=== PATIENT | female | born 1995 | race Caucasian/White ===

== ENCOUNTER 2019-09-27 16:17 | Emergency (ER) | payer OTHER, MEDICAID ==
[~2019-09-27] VITALS: Ht 160 cm; Wt 72.0 kg
[2019-09-27 17:01] LABS: BASO % 1 % (0-3); EOS # 0.1 x10^3/uL (0.0-0.7); EOS % 1 % (0-3); HEMATOCRIT 39.4 % (36.0-47.0); HEMOGLOBIN 13.2 g/dL (12.0-15.5); LYMPH # 3.3 x10^3/uL (1.0-4.8); LYMPH % 47 % (24-48); MEAN CORPUSCULAR HEMOGLOBIN 30 pg (25-35); MEAN CORPUSCULAR HGB CONC 34 g/dL (31-37); MEAN CORPUSCULAR VOLUME 89 fL (79-100); MONO # 0.6 x10^3/uL (0.0-1.1); MONO % 9 % (0-9); NEUT % 43 % (31-73); PLATELET COUNT 475 x10^3/uL (140-400); RED BLOOD COUNT 4.42 x10^6/uL (3.50-5.40); RED CELL DISTRIBUTION WIDTH 15.9 % (11.5-14.5)
[2019-09-27 17:12] LABS: CALCIUM 9.3 mg/dL (8.5-10.1); CREATININE 0.6 mg/dL (0.6-1.0); GFR 120.8; POTASSIUM 3.6 mmol/L (3.5-5.1)
[2019-09-27] MEDS ORDERED: ONDANSETRON PF 4 MG/2 ML VIAL. IV ONE ×2 (17:15→19:15)
[2019-09-27] MEDS ORDERED: MORPHINE SULFATE 4 MG/ML VIAL. IV ONE ×2 (17:15→19:15)
[2019-09-27] MEDS ORDERED: IV NORMAL SALINE 1000ML BAG 1,000 ML IV ONE (17:15)
[2019-09-27 17:26] LABS: ALBUMIN 4.1 g/dL (3.4-5.0); ALBUMIN/GLOBULIN RATIO 0.9 (1.0-1.7); TOTAL BILIRUBIN 0.4 mg/dL (0.2-1.0); TOTAL PROTEIN 8.8 g/dL (6.4-8.2)
[2019-09-27] MEDS ORDERED: IOHEXOL 300 MG/ML 100ML VIAL. IV ONE (17:45)
[2019-09-27 17:56] LABS: BILIRUBIN,URINE SMALL (NEG); CLARITY,URINE CLOUDY; COLOR,URINE YELLOW; NITRITE,URINE POSITIVE (NEG); PH,URINE 6.5 (<5.0-8.0); PROTEIN,URINE NEGATIVE (NEG-TRACE)
[2019-09-27] MEDS ORDERED: CONTRAST GIVEN. MC PRN (18:00)
[2019-09-27 18:15] LABS: BACTERIA,URINE MANY /HPF (0-FEW); SQUAMOUS EPITHELIAL CELL,UR MOD /LPF
[2019-09-27 18:20] LABS: RBC,URINE OCC /HPF (0-2)
[2019-09-27] MEDS ORDERED: cefTRIAXone IV Push 1 GM VIAL. IVP ONE (19:15)
[2019-09-27 19:35] LABS: U PREG PATIENT NEGATIVE (NEG)
--- NOTE | 2019-09-27 19:49 | RAD ---
Exam: CT of abdomen and pelvis with contrast INDICATION: Right flank pain TECHNIQUE: Sequential axial images through the abdomen and pelvis obtained following the administration of 75 mL of Omni 300 IV contrast. Sagittal and coronal reformatted images were reconstructed from the axial data and reviewed. Comparisons: None FINDINGS: Heart size is normal. No pericardial effusion. Strandy opacities at dependent portion lungs likely representing atelectasis. Liver, spleen, pancreas and adrenals are unremarkable. Gallbladder is mildly distended without adjacent inflammatory changes. Kidneys demonstrate symmetric enhancement. No perinephric inflammation or hydronephrosis. No renal or ureteral calculi are identified. Bladder is partially distended with apparent diffuse wall thickening. Uterus is not enlarged. Cystic change at the adnexa bilaterally. Large and small bowel are unremarkable. Appendix is normal. No free intra-abdominal air or fluid. No obstruction. Abdominal aorta has a normal course and caliber. Abdominal vasculature is patent. No enlarged intra-abdominal lymph nodes are identified. No suspicious osseous lesions or acute fractures. IMPRESSION: 1. No renal or ureteral calculi. No evidence for obstructive uropathy. 2. Mildly distended gallbladder without other inflammatory changes identified. Correlate with symptomatology to determine the need for further evaluation with ultrasound. 3. Apparent diffuse wall thickening of the bladder which may be related to underdistention. Consider correlation with urinalysis for cystitis. 4. Cystic change at the adnexa bilaterally, likely follicular change in the ovaries however incompletely characterized on CT. Exposure: One or more of the following in the visualized dose reduction techniques were utilized for this examination: 1. Automated exposure control 2. Adjustment of the MA and/or KV according to patient size 3. Use of iterative of reconstructive technique Electronically signed by: Tay Hamilton MD (09/27/2019 7:46 PM) [id number]
[2019-09-27] MEDS ORDERED: CIPR500T94 PO (20:21)
[2019-09-27] MEDS ORDERED: FLUC150T PO (20:21)
--- NOTE | 2019-09-27 20:21 | PHYS DOC ---
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 (DARRICK PLASENCIA MD) General Adult EDM: Chief Complaint: FLANK PAIN HPI: HPI: Patient is a 24 year old paraplegic female who presents to the emergency department via EMS with complaints of bilateral flank and suprapubic pain that began yesterday. Patient states she has had symptoms of urinary tract infection for a few weeks but noticed increased pain, nausea, and foul-smelling urine today. Patient denies any vomiting, fever, shortness of breath, cough, diarrhea, or decreased urine output. She currently rates her pain a 10 out of 10 on pain scale, she denies any alleviating or exacerbating factors. Patient states that she self catheterizes in order to urinate and that this morning she noticed a blood clot in her urine. Patient brought that blood clot with her to the emergency room. (BIJU MONGE APRN) Review of Systems: Review of Systems: Complete ROS is negative unless otherwise noted in HPI. (BIJU MONGE APRN) Heart Score: Risk Factors: Risk Factors: DM, Current or recent (<one month) smoker, HTN, HLP, family hist ory of CAD, obesity. Risk Scores: Score 0 - 3: 2.5% MACE over next 6 weeks - Discharge Home Score 4 - 6: 20.3% MACE over next 6 weeks - Admit for Clinical Observation Score 7 - 10: 72.7% MACE over next 6 weeks - Early Invasive Strategies (BIJU MONGE APRN) Current Medications: Current Medications Medications (Trade) Dose Ordered Sig/Emma Start Time Stop Time Status Last Admin Dose Admin Ceftriaxone Sodium (Rocephin) 1 gm 1X ONCE 09/27/19 19:15 09/27/19 19:16 DC 09/27/19 19:53 1 GM Info (CONTRAST GIVEN -- Rx MONITORING) 1 each PRN DAILY PRN 09/27/19 18:00 09/29/19 17:59 Iohexol (Omnipaque 300 Mg/ml) 75 ml 1X ONCE 09/27/19 17:45 09/27/19 17:46 DC 09/27/19 19:28 75 ML Morphine Sulfate (Morphine Sulfate) 4 mg 1X ONCE 09/27/19 19:15 09/27/19 19:16 DC 09/27/19 19:43 4 MG Ondansetron HCl (Zofran) 4 mg 1X ONCE 09/27/19 19:15 09/27/19 19:16 DC 09/27/19 19:40 4 MG Sodium Chloride 1,000 ml @ 1,000 mls/hr 1X ONCE 09/27/19 17:15 09/27/19 18:14 DC 09/27/19 17:26 1,000 MLS/HR (BIJU MONGE APRN) Allergies: Allergies: Allergies Coded Allergies Type Severity Reaction Last Updated Verified buprenorphine Allergy Severe nausea, vomiting, headache, "throat closes" 09/27/19 Yes naloxone Allergy Severe nausea, vomiting, headache, "throat closes" 09/27/19 Yes sulfamethoxazole Allergy Intermediate mouth sores 09/27/19 Yes trimethoprim Allergy Intermediate mouth sores 09/27/19 Yes hydrocodone Adverse Reaction Intermediate nausea and vomiting 09/27/19 Yes hydromorphone Adverse Reaction Intermediate nausea, vomiting, and headache 09/27/19 Yes tramadol Adverse Reaction Intermediate nausea, vomiting, and headache 09/27/19 Yes (BIJU MONGE APRN) Physical Exam: PE: Constitutional: Well developed, well nourished, no acute distress, non-toxic appearance. [] HENT: Normocephalic, atraumatic, bilateral external ears normal, nose normal. [] Eyes: PERRLA, EOMI, conjunctiva normal, no discharge. [] Neck: Normal range of motion, no stridor. [] Cardiovascular:Heart rate regular rhythm Lungs & Thorax: Bilateral breath sounds clear to auscultation, Respirations even and unlabored, no retractions, no respiratory distress [] Abdomen: Soft, suprapubic TTP, no rebound tenderness, no masses, no pulsatile masses. [] Skin: Warm, dry, no erythema, no rash. [] Back: Bilateral CVA tenderness. [] Extremities: No cyanosis, no edema. [] Neurologic: Alert and oriented X 3, no focal deficits noted. [] Psychologic: Affect normal, judgement normal, mood normal. [] (BIJU MONGE APRN) Current Patient Data: Labs: Laboratory Tests Test 09/27/19 16:30 09/27/19 17:40 White Blood Count 7.0 x10^3/uL (4.0-11.0) Red Blood Count 4.42 x10^6/uL (3.50-5.40) Hemoglobin 13.2 g/dL (12.0-15.5) Hematocrit 39.4 % (36.0-47.0) Mean Corpuscular Volume 89 fL (79-100) Mean Corpuscular Hemoglobin 30 pg (25-35) Mean Corpuscular Hemoglobin Concent 34 g/dL (31-37) Red Cell Distribution Width 15.9 % (11.5-14.5) H Platelet Count 475 x10^3/uL (140-400) H Neutrophils (%) (Auto) 43 % (31-73) Lymphocytes (%) (Auto) 47 % (24-48) Monocytes (%) (Auto) 9 % (0-9) Eosinophils (%) (Auto) 1 % (0-3) Basophils (%) (Auto) 1 % (0-3) Neutrophils # (Auto) 3.0 x10^3/uL (1.8-7.7) Lymphocytes # (Auto) 3.3 x10^3/uL (1.0-4.8) Monocytes # (Auto) 0.6 x10^3/uL (0.0-1.1) Eosinophils # (Auto) 0.1 x10^3/uL (0.0-0.7) Basophils # (Auto) 0.0 x10^3/uL (0.0-0.2) Sodium Level 139 mmol/L (136-145) Potassium Level 3.6 mmol/L (3.5-5.1) Chloride Level 101 mmol/L (98-107) Carbon Dioxide Level 25 mmol/L (21-32) Anion Gap 13 (6-14) Blood Urea Nitrogen 11 mg/dL (7-20) Creatinine 0.6 mg/dL (0.6-1.0) Estimated GFR (Cockcroft-Gault) 120.8 BUN/Creatinine Ratio 18 (6-20) Glucose Level 77 mg/dL (70-99) Calcium Level 9.3 mg/dL (8.5-10.1) Total Bilirubin 0.4 mg/dL (0.2-1.0) Aspartate Amino Transferase (AST) 31 U/L (15-37) Alanine Aminotransferase (ALT) 29 U/L (14-59) Alkaline Phosphatase 89 U/L (46-116) Total Protein 8.8 g/dL (6.4-8.2) H Albumin 4.1 g/dL (3.4-5.0) Albumin/Globulin Ratio 0.9 (1.0-1.7) L Urine Collection Type U cath Urine Color Yellow Urine Clarity Cloudy Urine pH 6.5 (<5.0-8.0) Urine Specific [place] >=1.030 (1.000-1.030) Urine Protein Negative mg/dL (NEG-TRACE) Urine Glucose (UA) Negative mg/dL (NEG) Urine Ketones (Stick) 40 mg/dL (NEG) Urine Blood Negative (NEG) Urine Nitrite Positive (NEG) Urine Bilirubin Small (NEG) Urine Urobilinogen Dipstick 1.0 mg/dL (0.2 mg/dL) Urine Leukocyte Esterase Small (NEG) Urine RBC Occ /HPF (0-2) Urine WBC 11-20 /HPF (0-4) Urine Squamous Epithelial Cells Mod /LPF Urine Bacteria Many /HPF (0-FEW) Urine Mucus Marked /LPF Urine Test Negative (NEG) Laboratory Tests 09/27/19 16:30 Laboratory Tests 09/27/19 16:30 Vital Signs: Vital Signs Date Time Temp Pulse Resp B/P (MAP) Pulse Ox O2 Delivery O2 Flow Rate FiO2 09/27/19 19:43 20 100 Room Air 09/27/19 16:17 98.0 91 158/99 (118) 98.0 (BIJU MONGE APRN) EKG: EKG: [] (BIJU MONGE APRN) Radiology/Procedures: Radiology/Procedures: PROCEDURE: CT ABD PELV W/ IV CONTRST ONLY Exam: CT of abdomen and pelvis with contrast INDICATION: Right flank pain TECHNIQUE: Sequential axial images through the abdomen and pelvis obtained following the administration of 75 mL of Omni 300 IV contrast. Sagittal and coronal reformatted images were reconstructed from the axial data and reviewed. Comparisons: None FINDINGS: Heart size is normal. No pericardial effusion. Strandy opacities at dependent portion lungs likely representing atelectasis. Liver, spleen, pancreas and adrenals are unremarkable. Gallbladder is mildly distended without adjacent inflammatory changes. Kidneys demonstrate symmetric enhancement. No perinephric inflammation or hydronephrosis. No renal or ureteral calculi are identified. Bladder is partially distended with apparent diffuse wall thickening. Uterus is not enlarged. Cystic change at the adnexa bilaterally. Large and small bowel are unremarkable. Appendix is normal. No free intra-abdominal air or fluid. No obstruction. Abdominal aorta has a normal course and caliber. Abdominal vasculature is patent. No enlarged intra-abdominal lymph nodes are identified. No suspicious osseous lesions or acute fractures. IMPRESSION: 1. No renal or ureteral calculi. No evidence for obstructive uropathy. 2. Mildly distended gallbladder without other inflammatory changes identified. Correlate with symptomatology to determine the need for further evaluation with ultrasound. 3. Apparent diffuse wall thickening of the bladder which may be related to underdistention. Consider correlation with urinalysis for cystitis. 4. Cystic change at the adnexa bilaterally, likely follicular change in the ovaries however incompletely characterized on CT.[] (BIJU MONGE APRN) Course & Med Decision Making: Course & Med Decision Making Pertinent Labs and Imaging studies reviewed. (See chart for details) Patient is a 24-year-old female who presented to the emergency room with complaints of foul-smelling urine, with bilateral flank and suprapubic pain that began yesterday. Patient reports a history of self-catheterization, she is paraplegic. CBC is unremarkable, CMP is also unremarkable; UA is nitrite positive with 11-20 white blood cells, many bacteria, and occasional red blood cells. Patient was given 4 mg of Zofran, 4 mg of morphine, and a liter of normal saline in the emergency department. On receiving her urine results she was given a gram of Rocephin IV. Patient was given a second dose of morphine and Zofran prior to discharge. Initially prescribed patient ciprofloxacin for treatment of her urinary tract infection, patient states she is resistant to ciprofloxacin but responds well to Levaquin. Prescription was written for Levaquin and a as needed order for fluconazole per patient request. Patient was encouraged to follow-up with her primary care doctor this week, return to the ER if symptoms worsen. Patient verbalized an understanding of home care, medications, follow-up, and return to ED instructions and was in agreement with the plan of care. [] (BIJU MONGE APRN) Jenna Disclaimer: Dragon Disclaimer: This electronic medical record was generated, in whole or in part, using a voice recognition dictation system. (BIJU MONGE APRN) Departure Departure Impression: Primary Impression: Urinary tract infection Qualified Codes: N30.01 - Acute cystitis with hematuria Disposition: HOME, SELF-CARE Condition: STABLE Referrals: LUZ MARIA HAYES MD (PCP) Patient Instructions: Urinary Tract Infection, [id number] Additional Instructions: Fill prescription(s) and use as directed. Avoid bladder irritants such as caffeine, carbonation, and spicy foods. Increase clear fluids. Follow up with your primary care doctor if symptoms persist, return to the ER if symptoms worsen. Scripts Levofloxacin (LEVAQUIN) 750 Mg Tablet 1 TAB PO DAILY for 3 Days, #3 TAB 0 Refills Prov: BIJU MONGE APRN 09/27/19 Fluconazole (DIFLUCAN) 150 Mg Tablet 1 TAB PO ONCE, #1 TAB 1 Refill may repeat in 72 hours if symptoms persist Prov: BIJU MONGE APRN 09/27/19 BIJU MONGE APRN Sep 27, 2019 20:21 DARRICK PLASENCIA MD Sep 27, 2019 22:44
[2019-09-27] MEDS ORDERED: LEVO750T31 PO (20:54)
[2019-09-27 21:10] VITALS: BP 129/78
== END 2019-09-27 21:14 | disposition home or self-care (01) ==
LOC: ER 16:17
DX: N30.01 Acute cystitis with hematuria (principal); Z88.1 Allergy status to other antibiotic agents; Z88.2 Allergy status to sulfonamides; Z88.5 Allergy status to narcotic agent; Z88.6 Allergy status to analgesic agent
CPT/HCPCS: 36415; 74177; 80053; 81001; 81025; 85025; 87086; 96374; 96375; 96376; 99285; J0696; J2270; J2405; J7030; Q9967

== ENCOUNTER 2019-12-04 22:54 | Inpatient (IN) | payer OTHER, MEDICAID ==
[~2019-12-04] VITALS: Ht 160 cm; Wt 65.3 kg
[~2019-12-04 22:54] MED LIST: BACL20TA PO; CIPR500T94 PO; CYCL10TA2 PO; DICL75TA PO; DULO60CA6 PO; FLUC150T PO; GABA800T5 PO; LEVO750T31 PO; PRAZ1CAP2 PO; TIZA4TAB2 PO
[2019-12-04 23:34] LABS: BILIRUBIN,URINE SMALL (NEG); CLARITY,URINE CLOUDY; COLOR,URINE YELLOW; NITRITE,URINE POSITIVE (NEG); PROTEIN,URINE 100 mg/dL (NEG-TRACE)
[2019-12-04 23:39] LABS: BACTERIA,URINE MANY /HPF (0-FEW); WBC,URINE TNTC /HPF (0-4)
[2019-12-05 00:47] LABS: BASO # 0.1 x10^3/uL (0.0-0.2); BASO % 1 % (0-3); EOS # 0.3 x10^3/uL (0.0-0.7); EOS % 1 % (0-3); HEMATOCRIT 28.4 % (36.0-47.0); HEMOGLOBIN 9.3 g/dL (12.0-15.5); LYMPH # 3.1 x10^3/uL (1.0-4.8); LYMPH % 16 % (24-48); MEAN CORPUSCULAR HEMOGLOBIN 27 pg (25-35); MEAN CORPUSCULAR HGB CONC 33 g/dL (31-37); MEAN CORPUSCULAR VOLUME 84 fL (79-100); MONO # 2.1 x10^3/uL (0.0-1.1); MONO % 11 % (0-9); NEUT # 13.5 x10^3/uL (1.8-7.7); NEUT % 71 % (31-73); PLATELET COUNT 589 x10^3/uL (140-400); RED BLOOD COUNT 3.39 x10^6/uL (3.50-5.40); WHITE BLOOD COUNT 19.1 x10^3/uL (4.0-11.0)
[2019-12-05] MEDS ORDERED: cefTRIAXone IV Push 1 GM VIAL. IVP ONE (01:00)
[2019-12-05] MEDS ORDERED: FAMOTIDINE 20 MG/2 ML VIAL IVP ONE (01:00)
[2019-12-05] MEDS ORDERED: PHENAZOPYRIDINE 200 MG TABLET. PO ONE (01:00)
[2019-12-05] MEDS ORDERED: IV NORMAL SALINE 1000ML BAG 1,000 ML IV ONE (01:00)
[2019-12-05] MEDS ORDERED: KETOROLAC 15 MG/ML VIAL. IVP ONE (01:00)
[2019-12-05 01:03] LABS: ALBUMIN 2.6 g/dL (3.4-5.0); ALBUMIN/GLOBULIN RATIO 0.6 (1.0-1.7); CALCIUM 8.2 mg/dL (8.5-10.1); CREATININE 0.7 mg/dL (0.6-1.0); GFR 101.1; MAGNESIUM 2.1 mg/dL (1.8-2.4); TOTAL BILIRUBIN 0.1 mg/dL (0.2-1.0); TOTAL PROTEIN 6.7 g/dL (6.4-8.2)
[2019-12-05 01:14] LABS: POTASSIUM 2.7 mmol/L (3.5-5.1)
[2019-12-05 01:56] LABS: % BANDS 3 % (0-9); % EOS 1 % (0-5); % LYMPHS 19 % (24-48); % MONOS 6 % (0-10); % SEGS 71 % (35-66)
--- NOTE | 2019-12-05 01:56 | RAD ---
EXAM: CT ABDOMEN/PELVIS WITHOUT CONTRAST. HISTORY: Right flank pain. TECHNIQUE: Computed tomography of the abdomen and pelvis was performed without intravenous contrast. One or more of the following individualized dose reduction techniques were utilized for this examination: 1. Automated exposure control. 2. Adjustment of the mA and/or kV according to patient size. 3. Use of iterative reconstruction technique. COMPARISON: 09/27/2019. FINDINGS: Lung windows through the visualized portions of the bases reveal mild airspace infiltrates in the left base. Bone windows reveal no suspicious lesions. Instrumented posterior fusion changes at T9 are partially visualized. There is a mild chronic superior plate compression deformity at L1. There are no renal or ureteral calculi. The kidneys are unremarkable without contrast. There is no hydronephrosis. The bladder is partially decompressed but there is moderate diffuse wall thickening. Note is made of a retroaortic left renal vein. The liver, gallbladder, pancreas, adrenal glands, and spleen are unremarkable. There are no pathologically enlarged lymph nodes. An intrauterine device is in place. The colon is decompressed but there is suggestion of mild wall thickening. The appendix is not inflamed. There is no small bowel obstruction. IMPRESSION: 1. No renal or ureteral calculi. 2. Moderate bladder wall thickening. Correlate with urinalysis. 3. Mild colonic wall thickening may reflect only luminal decompression. Correlate clinically for mild colitis. Electronically signed by: Siva Bright MD (12/05/2019 1:53 AM) [facility]
[2019-12-05 01:57] LABS: ANISOCYTOSIS SLIGHT; PLT ESTIMATE INCREASED (ADEQUATE)
--- NOTE | 2019-12-05 02:07 | PHYS DOC ---
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 Denies associated nausea. Denies trauma. Denies fever or chills. Patient with past medical history of paraplegia. Denies history of kidney stone. Denies . Review of Systems: Review of Systems: Constitutional: Denies fever or chills; reports malaise Eyes: Denies redness or eye pain HENT: Denies nasal congestion or sore throat Respiratory: Denies cough or shortness of breath Cardiovascular: Denies chest pain or palpitations GI: Denies abdominal pain, nausea, or vomiting : Reports dysuria and hematuria Musculoskeletal: Reports right flank pain; denies neck pain Integument: Denies rash or skin lesions Neurologic: Denies headache, focal weakness or sensory changes Complete systems were reviewed and found to be within normal limits, except as documented in this note. Current Medications: Current Medications Medications (Trade) Dose Ordered Sig/Emma Start Time Stop Time Status Last Admin Dose Admin Ceftriaxone Sodium (Rocephin) 1 gm 1X ONCE 12/05/19 01:00 12/05/19 01:01 DC 12/05/19 01:05 1 GM Famotidine (Pepcid Vial) 20 mg 1X ONCE 12/05/19 01:00 12/05/19 01:04 DC Ketorolac Tromethamine (Toradol 15mg Vial) 15 mg 1X ONCE 12/05/19 01:00 12/05/19 01:01 DC 12/05/19 01:04 15 MG Phenazopyridine HCl (Pyridium) 200 mg 1X ONCE 12/05/19 01:00 12/05/19 01:01 DC 12/05/19 01:05 200 MG Potassium Chloride (Klor-Con) 40 meq 1X ONCE 12/05/19 02:00 12/05/19 02:01 UNV Sodium Chloride 1,000 ml @ 1,000 mls/hr 1X ONCE 12/05/19 01:00 12/05/19 01:59 DC 12/05/19 01:00 1,000 MLS/HR Allergies: Allergies: Allergies Coded Allergies Type Severity Reaction Last Updated Verified buprenorphine Allergy Severe nausea, vomiting, headache, "throat closes" 10/15/19 Yes naloxone Allergy Severe nausea, vomiting, headache, "throat closes" 10/15/19 Yes sulfamethoxazole Allergy Intermediate mouth sores 10/15/19 Yes trimethoprim Allergy Intermediate mouth sores 10/15/19 Yes hydrocodone Adverse Reaction Intermediate nausea and vomiting 10/15/19 Yes hydromorphone Adverse Reaction Intermediate nausea, vomiting, and headache 10/15/19 Yes tramadol Adverse Reaction Intermediate nausea, vomiting, and headache 10/15/19 Yes vancomycin Adverse Reaction Intermediate TACHYCARDIA/FEVER/ANXIETY 10/15/19 Yes Physical Exam: PE: Constitutional: Well developed, well nourished, no acute distress, non-toxic appearance HENT: Normocephalic, atraumatic Eyes: Conjunctiva normal, no discharge Neck: Normal range of motion, supple Lungs & Thorax: No respiratory distress, equal chest rise and fall Abdomen: Soft, suprapubic tenderness Skin: Warm, dry, no erythema, no rash Back: No tenderness, right CVA tenderness Extremities: No tenderness, ROM intact, no edema Neurologic: Alert and oriented X 3, paraplegia to BLE Psychologic: Affect normal, judgment normal Current Patient Data: Labs: Laboratory Tests Test 12/04/19 23:25 12/04/19 23:31 12/05/19 00:36 Urine Collection Type Unknown Urine Color Yellow Urine Clarity Cloudy Urine pH 6.0 (<5.0-8.0) Urine Specific [place] 1.020 (1.000-1.030) Urine Protein 100 mg/dL (NEG-TRACE) Urine Glucose (UA) Negative mg/dL (NEG) Urine Ketones (Stick) Negative mg/dL (NEG) Urine Blood Moderate (NEG) Urine Nitrite Positive (NEG) Urine Bilirubin Small (NEG) Urine Urobilinogen Dipstick 1.0 mg/dL (0.2 mg/dL) Urine Leukocyte Esterase Large (NEG) Urine RBC /HPF (0-2) Urine WBC Tntc /HPF (0-4) Urine Bacteria Many /HPF (0-FEW) POC Urine HCG, Qualitative Hcg negative (Negative) White Blood Count 19.1 x10^3/uL (4.0-11.0) H Red Blood Count 3.39 x10^6/uL (3.50-5.40) L Hemoglobin 9.3 g/dL (12.0-15.5) L Hematocrit 28.4 % (36.0-47.0) L Mean Corpuscular Volume 84 fL (79-100) Mean Corpuscular Hemoglobin 27 pg (25-35) Mean Corpuscular Hemoglobin Concent 33 g/dL (31-37) Red Cell Distribution Width 18.0 % (11.5-14.5) H Platelet Count 589 x10^3/uL (140-400) H Neutrophils (%) (Auto) 71 % (31-73) Lymphocytes (%) (Auto) 16 % (24-48) L Monocytes (%) (Auto) 11 % (0-9) H Eosinophils (%) (Auto) 1 % (0-3) Basophils (%) (Auto) 1 % (0-3) Neutrophils # (Auto) 13.5 x10^3/uL (1.8-7.7) H Lymphocytes # (Auto) 3.1 x10^3/uL (1.0-4.8) Monocytes # (Auto) 2.1 x10^3/uL (0.0-1.1) H Eosinophils # (Auto) 0.3 x10^3/uL (0.0-0.7) Basophils # (Auto) 0.1 x10^3/uL (0.0-0.2) Segmented Neutrophils % 71 % (35-66) H Band Neutrophils % 3 % (0-9) Lymphocytes % 19 % (24-48) L Monocytes % 6 % (0-10) Eosinophils % 1 % (0-5) Platelet Estimate Increased (ADEQUATE) Anisocytosis Slight Sodium Level 141 mmol/L (136-145) Potassium Level 2.7 mmol/L (3.5-5.1) *L Chloride Level 101 mmol/L (98-107) Carbon Dioxide Level 34 mmol/L (21-32) H Anion Gap 6 (6-14) Blood Urea Nitrogen 13 mg/dL (7-20) Creatinine 0.7 mg/dL (0.6-1.0) Estimated GFR (Cockcroft-Gault) 101.1 BUN/Creatinine Ratio 19 (6-20) Glucose Level 135 mg/dL (70-99) H Lactic Acid Level 1.2 mmol/L (0.4-2.0) Calcium Level 8.2 mg/dL (8.5-10.1) L Magnesium Level 2.1 mg/dL (1.8-2.4) Total Bilirubin 0.1 mg/dL (0.2-1.0) L Aspartate Amino Transferase (AST) 56 U/L (15-37) H Alanine Aminotransferase (ALT) 146 U/L (14-59) H Alkaline Phosphatase 108 U/L (46-116) Total Protein 6.7 g/dL (6.4-8.2) Albumin 2.6 g/dL (3.4-5.0) L Albumin/Globulin Ratio 0.6 (1.0-1.7) L Lipase 74 U/L (73-393) Laboratory Tests 12/05/19 00:36 Laboratory Tests 12/05/19 00:36 Vital Signs: Vital Signs Date Time Temp Pulse Resp B/P (MAP) Pulse Ox O2 Delivery O2 Flow Rate FiO2 12/04/19 22:59 98.4 139 18 117/68 (84) 97 Room Air 98.4 EKG: EKG: [] Radiology/Procedures: Radiology/Procedures: PROCEDURE: CT ABDOMEN PELVIS WO CONTRAST EXAM: CT ABDOMEN/PELVIS WITHOUT CONTRAST. HISTORY: Right flank pain. TECHNIQUE: Computed tomography of the abdomen and pelvis was performed without intravenous contrast. One or more of the following individualized dose reduction techniques were utilized for this examination: 1. Automated exposure control. 2. Adjustment of the mA and/or kV according to patient size. 3. Use of iterative reconstruction technique. COMPARISON: 09/27/2019. FINDINGS: Lung windows through the visualized portions of the bases reveal mild airspace infiltrates in the left base. Bone windows reveal no suspicious lesions. Instrumented posterior fusion changes at T9 are partially visualized. There is a mild chronic superior plate compression deformity at L1. There are no renal or ureteral calculi. The kidneys are unremarkable without contrast. There is no hydronephrosis. The bladder is partially decompressed but there is moderate diffuse wall thickening. Note is made of a retroaortic left renal vein. The liver, gallbladder, pancreas, adrenal glands, and spleen are unremarkable. There are no pathologically enlarged lymph nodes. An intrauterine device is in place. The colon is decompressed but there is suggestion of mild wall thickening. The appendix is not inflamed. There is no small bowel obstruction. IMPRESSION: 1. No renal or ureteral calculi. 2. Moderate bladder wall thickening. Correlate with urinalysis. 3. Mild colonic wall thickening may reflect only luminal decompression. Correlate clinically for mild colitis. Electronically signed by: Siva Bright MD (12/05/2019 1:53 AM) [facility] Course & Med Decision Making: Course & Med Decision Making Pertinent Labs and Imaging studies reviewed. (See chart for details) Patient presents with right flank pain with associated hematuria and dysuria. Patient is a paraplegic. Labs obtained and posted to chart. WBC elevated. La ctic acid within normal limits. UA with signs of infection. Empiric antibiotic initiated. Patient meeting sepsis criteria as SIRS positive with elevated WBC and tachycardia. Patient therefore meets sepsis criteria. However patient does not meet severe sepsis or septic shock criteria. IV fluid hydration provided. Pain addressed. Hypokalemia addressed. Patient requiring admission for further evaluation and treatment. Discussed with Dr. Leon (PCP, recreation facilities supervisor for Dr. Lancaster (PCP)) who is in agreement with admission. Discussed findings and plan with patient, who acknowledges understanding and agreement. Dragon Disclaimer: Dragon Disclaimer: This electronic medical record was generated, in whole or in part, using a voice recognition dictation system. Departure Departure Impression: Primary Impression: Sepsis Qualified Codes: A41.9 - Sepsis, unspecified organism Additional Impressions: Pyelonephritis Hypokalemia Disposition: ADMITTED INPATIENT Admitting Physician: James Leon Condition: STABLE Referrals: LUZ MARIA LANCASTER MD (PCP) Justicifation of Admission Dx: Justifications for Admission: Justification of Admission Dx: Yes Sepsis: Infection Comments: Pyelonephritis, Hypokalemia Critical Care Time Critical care time was 30 minutes which includes time at bedside, spent in discussion of patient's care with specialists and/or family members, with interpretation of laboratory and/or radiological studies and is exclusive of procedures. HOWARD SALCIDO DO Dec 05, 2019 02:07
[2019-12-05] MEDS ORDERED: ONDANSETRON PF 4 MG/2 ML VIAL. IV PRN (02:15)
[2019-12-05] MEDS ORDERED: fentaNYL PF VIAL 100 MCG/2 ML VIAL IV ONE (02:30)
[2019-12-05] MEDS ORDERED: POTASSIUM CHLORIDE 20 MEQ TABLET.ER. PO ONE (02:30)
[2019-12-05 04:41] VITALS: BP 117/73
[2019-12-05] MEDS ORDERED: C.DIFF MED SCREEN BY RX. MC ONE (06:00)
[2019-12-05 07:15] VITALS: BP 118/69
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
[2019-12-05] MEDS: oxyCODONE IR 5 MG TABLET PO PRN ×2 (09:38→15:25)
[2019-12-05] MEDS: POTASSIUM CL 40MEQ IN 0.9%NACL 1,000 ML IV SCH ×2 (10:29→21:42)
[2019-12-05 11:21] VITALS: BP 101/51
[2019-12-05] MEDS: DICLOFENAC SODIUM 25 MG TABLET.DR PO SCH ×2 (14:30→21:30)
[2019-12-05] MEDS: CYCLOBENZAPRINE 10 MG TABLET. PO SCH ×2 (14:30→21:29)
[2019-12-05] MEDS: BACLOFEN 10 MG TABLET. PO SCH ×3 (14:30→21:29)
[2019-12-05] MEDS: GABAPENTIN 400 MG CAPSULE. PO SCH ×3 (14:30→21:29)
--- NOTE | 2019-12-05 15:03 | NUR ---
Pharmacy Medication Review S: Consulted for medication review re: C.diff Risk Assessment score of 4 O: TRENT MAHONEY is a 24 year old with: Previous C.diff infection: No Previous hospitalization: Within 30 days -- NO, discharged 10/19/19 (47 days ago) Recent antibiotics: Within 30 days -- disch 10/19/19 with abx, unsure duration Use of gastric acid suppressor: No Transfer from [place]/[facility]: No Current antibiotic regimen: ROCEPHIN Current acid suppression regimen: N/A A: Patient has been identified as having risk factors for C.diff infection as noted above. P: Antibiotic Regimen recommendation made: NONE Probiotic ordered: YES PPI changed to [id number]: N/A [facility], 12/05/19 [id number]
[2019-12-05 15:30] VITALS: BP 129/82
[2019-12-05 19:56] VITALS: BP 86/47
[2019-12-05] MEDS: LACTOBACILLUS RHAMNOSUS GG 1 CAPSULE. PO SCH (21:29)
[2019-12-05] MEDS: cefTRIAXone IV Push 1 GM VIAL. IVP SCH (21:34)
[2019-12-05 23:50] VITALS: BP 85/44
[2019-12-06] VITALS (7 sets, daily range): BP systolic 97–114; BP diastolic 52–65
[2019-12-06] MEDS: POTASSIUM CL 40MEQ IN 0.9%NACL 1,000 ML IV SCH ×3 (02:30→18:29)
[2019-12-06] MEDS: oxyCODONE IR 5 MG TABLET PO PRN ×3 (03:33→19:26)
--- NOTE | 2019-12-06 05:20 | NUR ---
Found vape laying on floor. Patient snoring, would not wake with name being called and slight shaking. Vape placed in biohazard bag and placed in patient's medication bin. Will inform patient of vape location upon waking. Will also pass along to day RN.
[2019-12-06 05:53] LABS: BASO # 0.1 x10^3/uL (0.0-0.2); BASO % 1 % (0-3); EOS # 0.4 x10^3/uL (0.0-0.7); EOS % 3 % (0-3); HEMATOCRIT 27.2 % (36.0-47.0); HEMOGLOBIN 8.7 g/dL (12.0-15.5); LYMPH % 35 % (24-48); MEAN CORPUSCULAR HEMOGLOBIN 27 pg (25-35); MEAN CORPUSCULAR HGB CONC 32 g/dL (31-37); MEAN CORPUSCULAR VOLUME 85 fL (79-100); MONO # 1.9 x10^3/uL (0.0-1.1); MONO % 13 % (0-9); NEUT # 7.1 x10^3/uL (1.8-7.7); NEUT % 49 % (31-73); PLATELET COUNT 547 x10^3/uL (140-400); RED BLOOD COUNT 3.21 x10^6/uL (3.50-5.40); RED CELL DISTRIBUTION WIDTH 18.1 % (11.5-14.5); WHITE BLOOD COUNT 14.4 x10^3/uL (4.0-11.0)
[2019-12-06 05:58] LABS: ALBUMIN 2.1 g/dL (3.4-5.0); ALBUMIN/GLOBULIN RATIO 0.5 (1.0-1.7); ALK PHOS 103 U/L (46-116); ALT (SGPT) 93 U/L (14-59); ANION GAP 9 (6-14); AST (SGOT) 37 U/L (15-37); BLOOD UREA NITROGEN 14 mg/dL (7-20); BUN/CREATININE RATIO 23 (6-20); CALCIUM 8.1 mg/dL (8.5-10.1); CARBON DIOXIDE 27 mmol/L (21-32); CHLORIDE 107 mmol/L (98-107); CREATININE 0.6 mg/dL (0.6-1.0); GFR 120.8; GLUCOSE 157 mg/dL (70-99); POTASSIUM 4.1 mmol/L (3.5-5.1); SODIUM 143 mmol/L (136-145); TOTAL PROTEIN 6.1 g/dL (6.4-8.2)
[2019-12-06 06:01] LABS: TOTAL BILIRUBIN < 0.1 mg/dL (0.2-1.0)
[2019-12-06] MEDS: GABAPENTIN 400 MG CAPSULE. PO SCH ×4 (08:30→21:19)
[2019-12-06] MEDS: CYCLOBENZAPRINE 10 MG TABLET. PO SCH ×3 (08:30→21:19)
[2019-12-06] MEDS: LACTOBACILLUS RHAMNOSUS GG 1 CAPSULE. PO SCH ×2 (08:30→21:19)
[2019-12-06] MEDS: BACLOFEN 10 MG TABLET. PO SCH ×4 (08:30→21:19)
[2019-12-06] MEDS: DICLOFENAC SODIUM 25 MG TABLET.DR PO SCH ×3 (08:31→21:19)
--- NOTE | 2019-12-06 10:49 | PDOC ---
GENERAL General: vss and afebrile. feels minimally better this am. wbc decreased to 14K with resolution of left shift. gram negative rods as preliminary on urine culture. chest clear, heart regular, ongoing right upper quadrant and flank pain. continue present. K+ up to 4.1 with replacement. VITAL SIGNS/I&O Vital Signs/I&O: Vital Signs Date Time Temp Pulse Resp B/P (MAP) Pulse Ox O2 Delivery O2 Flow Rate FiO2 12/06/19 10:41 98.3 90 18 97/52 (67) 98 Room Air 98.3 I & O 12/05/19 12/05/19 12/06/19 15:00 23:00 07:00 Intake Total 120 ml 240 ml 440 ml Balance 120 ml 240 ml 440 ml ALLERGIES Allergies: Allergies Coded Allergies Type Severity Reaction Last Updated Verified buprenorphine Allergy Severe nausea, vomiting, headache, "throat closes" 10/15/19 Yes naloxone Allergy Severe nausea, vomiting, headache, "throat closes" 10/15/19 Yes sulfamethoxazole Allergy Intermediate mouth sores 10/15/19 Yes trimethoprim Allergy Intermediate mouth sores 10/15/19 Yes hydrocodone Adverse Reaction Intermediate nausea and vomiting 10/15/19 Yes hydromorphone Adverse Reaction Intermediate nausea, vomiting, and headache 10/15/19 Yes tramadol Adverse Reaction Intermediate nausea, vomiting, and headache 10/15/19 Yes vancomycin Adverse Reaction Intermediate TACHYCARDIA/FEVER/ANXIETY 10/15/19 Yes MEDS Medications: Current Medications Medications (Trade) Dose Ordered Sig/Emma Route PRN Reason Start Time Stop Time Status Last Admin Dose Admin Ceftriaxone Sodium (Rocephin) 1 gm Q24H IVP 12/05/19 21:00 12/05/19 21:34 Cyclobenzaprine HCl (Flexeril) 10 mg TID PO 12/05/19 14:00 12/06/19 08:30 Baclofen (Lioresal) 20 mg QID PO 12/05/19 14:00 12/06/19 08:30 Diclofenac Sodium (Voltaren) 75 mg TID PO 12/05/19 14:15 12/06/19 08:31 Gabapentin (Neurontin) 1,200 mg QID PO 12/05/19 14:14 12/06/19 08:30 Lactobacillus Rhamnosus (Culturelle) 1 cap BID PO 12/05/19 21:00 12/06/19 08:30 LAB Lab: Laboratory Tests Test 12/06/19 05:00 White Blood Count 14.4 x10^3/uL (4.0-11.0) H Red Blood Count 3.21 x10^6/uL (3.50-5.40) L Hemoglobin 8.7 g/dL (12.0-15.5) L Hematocrit 27.2 % (36.0-47.0) L Mean Corpuscular Volume 85 fL (79-100) Mean Corpuscular Hemoglobin 27 pg (25-35) Mean Corpuscular Hemoglobin Concent 32 g/dL (31-37) Red Cell Distribution Width 18.1 % (11.5-14.5) H Platelet Count 547 x10^3/uL (140-400) H Neutrophils (%) (Auto) 49 % (31-73) Lymphocytes (%) (Auto) 35 % (24-48) Monocytes (%) (Auto) 13 % (0-9) H Eosinophils (%) (Auto) 3 % (0-3) Basophils (%) (Auto) 1 % (0-3) Neutrophils # (Auto) 7.1 x10^3/uL (1.8-7.7) Lymphocytes # (Auto) 5.0 x10^3/uL (1.0-4.8) H Monocytes # (Auto) 1.9 x10^3/uL (0.0-1.1) H Eosinophils # (Auto) 0.4 x10^3/uL (0.0-0.7) Basophils # (Auto) 0.1 x10^3/uL (0.0-0.2) Sodium Level 143 mmol/L (136-145) Potassium Level 4.1 mmol/L (3.5-5.1) Chloride Level 107 mmol/L (98-107) Carbon Dioxide Level 27 mmol/L (21-32) Anion Gap 9 (6-14) Blood Urea Nitrogen 14 mg/dL (7-20) Creatinine 0.6 mg/dL (0.6-1.0) Estimated GFR (Cockcroft-Gault) 120.8 BUN/Creatinine Ratio 23 (6-20) H Glucose Level 157 mg/dL (70-99) H Calcium Level 8.1 mg/dL (8.5-10.1) L Total Bilirubin < 0.1 mg/dL (0.2-1.0) L Aspartate Amino Transferase (AST) 37 U/L (15-37) Alanine Aminotransferase (ALT) 93 U/L (14-59) H Alkaline Phosphatase 103 U/L (46-116) Total Protein 6.1 g/dL (6.4-8.2) L Albumin 2.1 g/dL (3.4-5.0) L Albumin/Globulin Ratio 0.5 (1.0-1.7) L Laboratory Tests 12/06/19 05:00 Laboratory Tests 12/06/19 05:00 Justicifation of Admission Dx: Justifications for Admission: Justification of Admission Dx: Yes Comments: pyelonephritis and profound hypokalemia. APPL,JASON Castro MD Dec 06, 2019 10:49
[2019-12-06] MEDS: fentaNYL PF VIAL 100 MCG/2 ML VIAL IV PRN ×2 (17:34→21:50)
[2019-12-06] MEDS: cefTRIAXone IV Push 1 GM VIAL. IVP SCH (21:20)
[2019-12-07] MEDS: oxyCODONE IR 5 MG TABLET PO PRN ×4 (02:56→20:12)
[2019-12-07] MEDS: POTASSIUM CL 40MEQ IN 0.9%NACL 1,000 ML IV SCH ×2 (02:57→15:01)
[2019-12-07 03:14] VITALS: BP 112/68
[2019-12-07] MEDS: fentaNYL PF VIAL 100 MCG/2 ML VIAL IV PRN (05:02)
[2019-12-07] MEDS: tiZANidine 4 MG TABLET. PO PRN ×2 (05:10→15:46)
[2019-12-07 07:20] VITALS: BP 114/66
--- NOTE | 2019-12-07 08:50 | PDOC ---
Provider Note Provider Note vss, no temp, good intake- labs better, urine cult pending re ID- will reduce iv fluid, cont rocep, to floor/dc monitor- maybe home 1-2 d when po med known as she does self caths Justicifation of Admission Dx: Justifications for Admission: Justification of Admission Dx: Yes NOEL BARNETT MD Dec 07, 2019 08:50
[2019-12-07] MEDS: CYCLOBENZAPRINE 10 MG TABLET. PO SCH ×3 (08:59→20:19)
[2019-12-07] MEDS: DICLOFENAC SODIUM 25 MG TABLET.DR PO SCH ×3 (09:00→20:19)
[2019-12-07] MEDS: LACTOBACILLUS RHAMNOSUS GG 1 CAPSULE. PO SCH ×2 (09:00→20:18)
[2019-12-07] MEDS: GABAPENTIN 400 MG CAPSULE. PO SCH ×4 (09:00→20:18)
[2019-12-07] MEDS: BACLOFEN 10 MG TABLET. PO SCH ×4 (09:00→20:19)
[2019-12-07 11:04] VITALS: BP 108/72
--- NOTE | 2019-12-07 12:12 | NUR ---
SW following. Reviewed chart and coordinated care with RN and Dr. Valadez. Met with pt who stated she lives alone but that her boyfriend stays over some. Pt stated no concerns about returning home at discharge. pt on room air. Pt stated that she is working with [employer] to get a PD worker through Medicaid. Pt sated no concerns affording medications. No further SW needs identified at this time.
[2019-12-07 15:12] VITALS: BP 109/73
[2019-12-07] MEDS ORDERED: MIRA25TA PO (16:13)
--- NOTE | 2019-12-07 17:13 | NUR ---
Wound/Ostomy Care Wound Type/Assessment: Wound consult for multiple wounds. Bilateral wounds of unknown origin, pt denies pressure being applied or burning herself with cigarettes, circular in shape, suspicious, similar to wounds associated with MRSA. Back wound, pt states that she scratch herself, slough noted on wound. Bilateral hands with open wounds in creases of fingers, pt said they appear d/t excessive dry skin. Treatment Recommendations/Plan: All wound cleansed with wound wash. Back and hands were pictured and measured. Bilateral thighs and back dressed with hydrocolloid dressings, skin prep to periwound. Bilateral hands dressed with Xeroform and wrapped with Kerlix and tape. Recommendation to change dressings every other day. Education provided: patient, advised her to keep wounds cleaned and covered as long as they are open. Educated pt on PU prevention. Offloading surface/device: self turn, pt has offloading cushion on her wheelchair. Recommended Referrals/Tests: MRSA testing to r/o origin of wounds. Discharge Recommendations for dressings: same as above
[2019-12-07 19:00] VITALS: BP 102/61
[2019-12-07] MEDS: OXYBUTYNIN CHLORIDE 5 MG TABLET PO SCH (20:20)
[2019-12-07] MEDS: cefTRIAXone IV Push 1 GM VIAL. IVP SCH (20:32)
[2019-12-07 23:00] VITALS: BP 110/65
[2019-12-08] MEDS: oxyCODONE IR 5 MG TABLET PO PRN ×2 (02:18→08:55)
[2019-12-08 03:00] VITALS: BP 98/50
[2019-12-08] MEDS ORDERED: diphenhydrAMINE 50 MG/ML VIAL IVP PRN (03:15)
[2019-12-08 07:14] VITALS: BP 105/45
--- NOTE | 2019-12-08 08:35 | PDOC ---
Provider Note Provider Note [id number] Justicifation of Admission Dx: Justifications for Admission: Justification of Admission Dx: Yes NOEL BARNETT MD Dec 08, 2019 08:35
[2019-12-08] MEDS: CYCLOBENZAPRINE 10 MG TABLET. PO SCH (08:54)
[2019-12-08] MEDS: OXYBUTYNIN CHLORIDE 5 MG TABLET PO SCH (08:54)
[2019-12-08] MEDS: BACLOFEN 10 MG TABLET. PO SCH (08:54)
[2019-12-08] MEDS: DICLOFENAC SODIUM 25 MG TABLET.DR PO SCH (08:54)
[2019-12-08] MEDS ORDERED: NICOTINE 14MG PATCH. TD SCH (09:00)
--- NOTE | 2019-12-08 09:37 | DS ---
DATE OF DISCHARGE: 12/08/2019 HOSPITAL SUMMARY: A 24-year-old white female, paraplegic from a thoracic spinal cord injury years ago, came in with evidence of urinary tract infection and SIRS with tachycardia and fever. Urine culture grew out E. coli, sensitivities pending. Potassium is low at 2.7, came up to normal. Renal function was normal. Transaminases were mildly elevated and stayed elevated in a stable state and the rest of the laboratory was unremarkable. She does have anemia with a hemoglobin around 9, but apparently this was preexisting. She was treated with IV Rocephin and fever abated, tachycardia improved and she is feeling better, eating and drinking and able to be followed as an outpatient at this point. FINAL DIAGNOSES: 1. Pyelonephritis. 2. Hypokalemia, resolved. 3. Anemia of chronic disease. OPERATIONS, PROCEDURES, COMPLICATIONS, CONSULTATIONS: None. DISPOSITION: She will take Vantin 200 mg twice a day for 5 more days. All home medicines remained the same. I declined to use opioids as she has not been getting them through . Good fluid intake. Activity as tolerated. Follow up as needed with Dr. Lancaster, her regular doctors at [facility] for chronic pain and spinal cord problems. She does self-catheterization at home and certainly predisposes her urinary tract infections as she is well aware of. NOEL BARNETT MD DR: JO ANN/[place] JOB#: [id number] / [id number]
[2019-12-08] MEDS: GABAPENTIN 400 MG CAPSULE. PO SCH (10:14)
[2019-12-08 11:10] VITALS: BP 103/63
--- NOTE | 2019-12-08 11:45 | NUR ---
Pt left unit at 1145 by wheelchair accompanied by boyfriend. IV removed with no complications, VSS. This RN discussed discharge instructions and provided teaching handouts. Belongings returned upon discharge.
--- NOTE | 2019-12-08 12:42 | NUR ---
Spoke with RN. Pt to discharge today, 12/08/2019. See previous SW notes. No SW discharge needs per RN.
== END 2019-12-08 11:48 | disposition home or self-care (01) | DRG 871 ==
LOC: ER 22:54 → 6 SOUTH 12-05 02:59
PROVIDERS: ADMIT Family Medicine; ATTEND Family Medicine
DX: A41.9 Sepsis, unspecified organism (principal); E43 Unspecified severe protein-calorie malnutrition; N12 Tubulo-interstitial nephritis, not specified as acute or chronic; G82.20 Paraplegia, unspecified; E87.6 Hypokalemia; D63.8 Anemia in other chronic diseases classified elsewhere; F17.200 Nicotine dependence, unspecified, uncomplicated; F32.9 Major depressive disorder, single episode, unspecified; Z88.8 Allergy status to other drugs, medicaments and biological substances; Z79.899 Other long term (current) drug therapy; Z68.25 Body mass index [BMI] 25.0-25.9, adult; B96.20 Unspecified Escherichia coli [E. coli] as the cause of diseases classified elsewhere
CPT/HCPCS: 36415; 74176; 80053; 81001; 81025; 83540; 83550; 83605; 83690; 83735; 85007; 85025; 87077; 87086; 87186; 96361; 96374; 96375; 99291; J0696; J1200; J1885; J3010; J3480; J7030; G0378

== ENCOUNTER 2020-07-03 18:24 | Emergency (ER) | payer OTHER, MEDICAID ==
[~2020-07-03] VITALS: Ht 160 cm; Wt 54.0 kg
[~2020-07-03 18:24] MED LIST changes: +MIRA25TA PO
--- NOTE | 2020-07-03 19:38 | PHYS DOC ---
Past Medical History Past Medical History: Depression, Other Additional Past Medical Histor: T6T7 spinal cord injury w/paraplegia (EARLENE OGDEN APRN) Past Surgical History: Other Additional Past Surgical Histo: t5-t9 surgery w/rods and screws (EARLENE OGDEN APRN) Smoking Status: Current Every Day Smoker Alcohol Use: Occasionally Drug Use: None (EARLENE OGDEN APRN) General Adult EDM: Chief Complaint: FLANK PAIN HPI: HPI: Patient is a 24 year old paraplegic female patient who presents to the ED today with 2 complaints. Patient is complaining of right flank pain rated as mild and intermittent, symptoms for 2 weeks, denies anything specifically exacerbating or relieving her flank pain, she states she straight caths herself and knows she has a UTI or kidney infection. Denies any fever, nausea vomiting. Denies any chance she is . She is also complaining of an insect bite to the left medial elbow that she noted 2 to 3 days ago. Denies any drainage from the area. (EARLENE OGDEN APRN) Review of Systems: Review of Systems: Constitutional: Denies fever or chills. [] Eyes: Denies change in visual acuity. [] HENT: Denies nasal congestion or sore throat. [] Respiratory: Denies cough or shortness of breath. [] Cardiovascular: Denies chest pain or edema. [] GI: Denies abdominal pain, nausea, vomiting, bloody stools or diarrhea. [] : Reports right flank pain, reports straight cathing herself. Musculoskeletal: Denies back pain or joint pain. [] Integument: Reports insect bite to the right medial elbow Neurologic: Denies headache, focal weakness or sensory changes. [] Psychiatric: Denies depression or anxiety. [] (EARLENE OGDEN APRN) Heart Score: Risk Factors: Risk Factors: DM, Current or recent (<one month) smoker, HTN, HLP, family history of CAD, obesity. Risk Scores: Score 0 - 3: 2.5% MACE over next 6 weeks - Discharge Home Score 4 - 6: 20.3% MACE over next 6 weeks - Admit for Clinical Observation Score 7 - 10: 72.7% MACE over next 6 weeks - Early Invasive Strategies (EARLENE OGDEN APRN) Allergies: Allergies: Allergies Coded Allergies Type Severity Reaction Last Updated Verified buprenorphine Allergy Severe nausea, vomiting, headache, "throat closes" 10/15/19 Yes naloxone Allergy Severe nausea, vomiting, headache, "throat closes" 10/15/19 Yes sulfamethoxazole Allergy Intermediate mouth sores 10/15/19 Yes trimethoprim Allergy Intermediate mouth sores 10/15/19 Yes hydrocodone Adverse Reaction Intermediate nausea and vomiting 10/15/19 Yes hydromorphone Adverse Reaction Intermediate nausea, vomiting, and headache 10/15/19 Yes tramadol Adverse Reaction Intermediate nausea, vomiting, and headache 10/15/19 Yes vancomycin Adverse Reaction Intermediate TACHYCARDIA/FEVER/ANXIETY 10/15/19 Yes (EARLENE OGDEN APRN) Physical Exam: PE: Constitutional: Well developed, well nourished, no acute distress, non-toxic appearance. [] HENT: Normocephalic, atraumatic, bilateral external ears normal, oropharynx moist, no oral exudates, nose normal. [] Eyes: PERRLA, EOMI, conjunctiva normal, no discharge. [] Neck: Normal range of motion, no tenderness, supple, no stridor. [] Cardiovascular:Heart rate regular rhythm, no murmur [] Lungs & Thorax: Bilateral breath sounds clear to auscultation [] Abdomen: Bowel sounds normal, soft, no tenderness, no masses, no pulsatile masses. [] Skin: Multiple scabs noted to bilateral upper and lower extremities. Denies any drug use. Right medial elbow with a scabbed up wound roughly 3 x 3 cm with surrounding cellulitis and soft tissue swelling. No drainage. Wound is warm tender to touch. Infection appears superficial. Full range of motion to the right elbow. +2 right radial pulse. Cap refill less than 2 seconds the right upper extremity Back: No tenderness, no CVA tenderness. [] Extremities: No tenderness, no cyanosis, no clubbing, paraplegic Neurologic: Alert and oriented X 3, normal motor function, normal sensory function, no focal deficits noted. [] Psychologic: Affect normal, judgement normal, mood normal. [] (EARLENE OGDEN APRN) EKG: EKG: [] (EARLENE OGDEN APRN) Radiology/Procedures: Radiology/Procedures: []PROCEDURE: ELBOW RIGHT 3V 3 view study of the right elbow Clinical indications: Wound/insect bite on medial aspect. Possible infection FINDINGS: No joint effusion is seen. No acute fracture or dislocation or lytic process is evident. No soft tissue swelling of the olecranon bursa is evident. There is soft tissue edema medially. IMPRESSION: No acute osseous abnormality. Soft tissue edema medially. No radiographic foreign body is evident. Electronically signed by: Felipe Loza MD (07/03/2020 8:30 PM) [id number] DICTATED and SIGNED BY: FELIPE LOZA MD DATE: 07/03/[id number] 0 (EARLENE OGDEN APRN) Course & Med Decision Making: Course & Med Decision Making Pertinent Labs and Imaging studies reviewed. (See chart for details) This is a 24-year-old female patient paraplegic presenting to the ED today complaining of right flank pain and concern she has kidney infection. Patient straight caths herself. Patient is also complaining of right elbow wound from what she believes was an insect bite a few days ago. The wound appears infected. Tetanus is up-to-date. Tetanus up-to-date. Urine positive for infection. Discharged on Levaquin which will cover patient's wound as well as UTI. Also given prescription for Bactroban ointment. Follow-up with PCP in 1 week (EARLENE OGDEN APRN) [place] Disclaimer: [place] Disclaimer: This electronic medical record was generated, in whole or in part, using a voice recognition dictation system. (EARLENE OGDEN APRN) Departure Departure Impression: Primary Impression: Urinary tract infection Qualified Codes: T83.511A - Infection and inflammatory reaction due to indwelling urethral catheter, initial encounter; N39.0 - Urinary tract infection, site not specified Additional Impressions: Abscess of right upper extremity Cellulitis of right upper extremity Disposition: OR HOME SELF CARE/HOMELESS Condition: STABLE Referrals: NO PCP (PCP) follow up with your doctor in 1 week Patient Instructions: Abscess, Care After, Urinary Tract Infection Additional Instructions: You were seen in the emergency room for an abscess on the right upper arm as well as infection in your urine. Please take the prescribed antibiotics until completed. Please apply the Bactroban ointment today abscess on your right elbow for 10 days. Follow-up with your doctor in 1 to 2 weeks. Scripts Mupirocin (MUPIROCIN OINTMENT) 22 Gm Oint...g. 1 NIKKIE TP TID for WOUND CARE, #1 TUBE Prov: EARLENE OGDEN APRN 07/03/20 Levofloxacin (LEVOFLOXACIN) 500 Mg Tablet 1 TAB PO DAILY, #7 TAB Prov: EARLENE OGDEN APRN 07/03/20 Attending Signature Attending Signature I have reviewed the PA/FISH MACHINE FEEDER's note and plan of care. I was available for consultation as needed during the patient's visit in the emergency department. I agree with the clinical impression, plan, and disposition. (HOWARD SALCIDO DO) EARLENE OGDEN APRN Jul 03, 2020 19:38 HOWARD SALCIDO DO Jul 04, 2020 04:22
[2020-07-03 19:47] LABS: BILIRUBIN,URINE NEGATIVE (NEG); CLARITY,URINE CLEAR; COLOR,URINE YELLOW; NITRITE,URINE POSITIVE (NEG); PH,URINE 8.5 (<5.0-8.0); PROTEIN,URINE NEGATIVE (NEG-TRACE); UROBILINOGEN,URINE 0.2 mg/dL (0.2 mg/dL)
[2020-07-03 19:59] LABS: AMORPHOUS SEDIMENT,UR PRESENT /HPF; BACTERIA,URINE MANY /HPF (0-FEW); RBC,URINE 0 /HPF (0-2)
--- NOTE | 2020-07-03 20:33 | RAD ---
3 view study of the right elbow Clinical indications: Wound/insect bite on medial aspect. Possible infection FINDINGS: No joint effusion is seen. No acute fracture or dislocation or lytic process is evident. No soft tissue swelling of the olecranon bursa is evident. There is soft tissue edema medially. IMPRESSION: No acute osseous abnormality. Soft tissue edema medially. No radiographic foreign body is evident. Electronically signed by: Austin Loza MD (07/03/2020 8:30 PM) [id number]
[2020-07-03] MEDS ORDERED: LEVO500T8 PO (21:06)
[2020-07-03] MEDS ORDERED: MUPI22OI2 TP (21:06)
[2020-07-03 21:27] VITALS: BP 105/61
== END 2020-07-03 21:45 | disposition home or self-care (01) ==
LOC: ER 18:24
DX: T83.511A Infection and inflammatory reaction due to indwelling urethral catheter, initial encounter (principal); N39.0 Urinary tract infection, site not specified; L02.413 Cutaneous abscess of right upper limb; L03.113 Cellulitis of right upper limb; M25.522 Pain in left elbow; F32.9 Major depressive disorder, single episode, unspecified; F17.200 Nicotine dependence, unspecified, uncomplicated; Z98.890 Other specified postprocedural states; Z88.2 Allergy status to sulfonamides; Z88.1 Allergy status to other antibiotic agents; Z88.5 Allergy status to narcotic agent; Z88.8 Allergy status to other drugs, medicaments and biological substances
CPT/HCPCS: 73080; 81001; 87086; 99284